=== PATIENT | male | born 1985 | race African-American/Black ===

== ENCOUNTER 2024-10-24 20:18 | Emergency (ER) | payer SELFPAY ==
[~2024-10-24] VITALS: Ht 170.2 cm; Wt 87.0 kg
[2024-10-24 20:29] VITALS: O2SAT 99
[2024-10-24 20:33] VITALS: BP 145/88; PULSE 70; RESP 18; TEMP 36.7; O2SAT 100
== END 2024-10-24 23:57 | disposition left against medical advice (07) ==
LOC: ER 20:18
DX: R50.9 Fever, unspecified (principal); Z53.21 Procedure and treatment not carried out due to patient leaving prior to being seen by health care provider